=== PATIENT | female | born 1955 | race Caucasian/White ===

== ENCOUNTER 2022-10-15 08:16 | Emergency (ER) | payer MEDICARE, MEDICAID ==
[~2022-10-15] VITALS: Ht 154.9 cm; Wt 70.0 kg
[2022-10-15 08:20] VITALS: BP 170/86
== END 2022-10-15 10:38 | disposition home or self-care (01) ==
LOC: ER 08:17
DX: F32.A Depression, unspecified (principal); F43.21 Adjustment disorder with depressed mood
CPT/HCPCS: 99284

== ENCOUNTER 2023-10-03 08:58 | Emergency (ER) | payer MEDICARE, MEDICAID ==
[~2023-10-03] VITALS: Ht 127 cm; Wt 70.9 kg
[2023-10-03 08:58] VITALS: BP 154/90; PULSE 76; RESP 16; TEMP 98; O2SAT 98
[2023-10-03] MEDS ORDERED: OXYC-658 PO (09:12)
[2023-10-03] MEDS ORDERED: NAPR-56 PO (09:12)
[2023-10-03] MEDS ORDERED: LIDO1ADH58 TOP (09:12)
[2023-10-03] MEDS ORDERED: ACET-3447 PO (09:12)
== END 2023-10-03 21:05 | disposition home or self-care (01) ==
LOC: ER 08:58
DX: M79.672 Pain in left foot (principal); G89.29 Other chronic pain; M81.0 Age-related osteoporosis without current pathological fracture; Z79.899 Other long term (current) drug therapy
CPT/HCPCS: 99283